=== PATIENT | female | born 1975 ===

== ENCOUNTER 2017-10-08 05:59 | Observation (INO) | payer OTHER ==
[2017-10-05 16:42] VITALS: BMI 34.7
[2017-10-08] MEDS ORDERED: Lactated Ringer's 1,000 ML IV ONE ×2 (07:07→08:00)
[2017-10-08] MEDS ORDERED: Bupivacaine 0.5% Inj(30mL) ONE (07:12)
[2017-10-08] MEDS ORDERED: Propofol 10 mg/ml Inj (20 ML) ONE (07:26)
[2017-10-08] MEDS ORDERED: ePHEDrine 50 mg/ml Inj ONE (07:27)
[2017-10-08] MEDS ORDERED: Succinylcholine 200 mg/10 ml Inj IV ONE (07:28)
[2017-10-08] MEDS ORDERED: Midazolam 2 MG/2 ML VIAL ONE (07:28)
[2017-10-08] MEDS ORDERED: Rocuronium 10 mg/ml (5 ml) ONE (07:28)
[2017-10-08] MEDS ORDERED: Lidocaine 4% (Laryng-O-Jet) Kit MM ONE (07:29)
--- NOTE | 2017-10-08 08:06 | CP.SDSHP ---
Same Day Surgery H & P - History Proposed Procedure: Hysterectomy - Allergies Allergies: Allergies No Known Allergies Allergy (Verified 10/04/17 10:53) - Physical Exam Vital Signs: Vital Signs 10/08/17 10/08/17 06:32 06:36 Temperature 98.6 F Pulse Rate 84 84 Respiratory 20 Rate Blood Pressure 109/76 O2 Sat by Pulse 100 Oximetry - Impression Impression: Menorrhagia refractory to medical management we discussed the risks benefits and alternatives to surgery and informed consent was obtained. Patient agreed to plan of care - Date & Time Date: 10/08/17 Time: 08:05 Short Stay Discharge - Short Stay Discharge Admitting Diagnosis/Reason for Visit: R10.2 Disposition: HOME/ ROUTINE Referrals: Katrina Araujo MD [Primary Care Provider] -
[2017-10-08] MEDS ORDERED: Dexamethasone 4 mg/1 ml ONE (08:17)
[2017-10-08] MEDS ORDERED: Neostigmine Methylsulfate 3mg/3ml Syringe IV ONE (09:55)
[2017-10-08] MEDS ORDERED: Lactated Ringer's 1,000 ML IV SCH (10:30)
[2017-10-08] MEDS: HYDROmorphone 0.5 mg/0.5 ml ISec IVP PRN ×2 (10:40→11:40)
[2017-10-08] MEDS ORDERED: Oxycodone/Acetaminophen 5/325 mg Tab PO PRN ×2 (10:47→18:40)
[2017-10-08 11:40] LABS: HEMOGLOBIN 12.8 g/dL (12.0-16.0); MEAN CELL VOLUME 89.2 fl (81.0-99.0); MEAN CORPUSCULAR HEMOGLOBIN 28.9 pg (27.0-31.0); MEAN CORPUSCULAR HGB CONC 32.4 g/dL (33.0-37.0); RBC 4.42 Mil/uL (3.80-5.20); RED CELL DISTRIBUTION WIDTH 13.1 % (11.5-14.5); WHITE BLOOD COUNT 19.2 K/uL (4.8-10.8)
--- NOTE | 2017-10-08 11:42 | OP ---
PROCEDURE DATE: PREOPERATIVE DIAGNOSES: Menorrhagia, pelvic pain, adenomyosis. POSTOPERATIVE DIAGNOSES: Menorrhagia, pelvic pain, adenomyosis. THE OPERATION PERFORMED: Robotic-assisted hysterectomy, cystoscopy. SURGEON: Rod Hamm MD. ERP DEVELOPER: Nii Ortiz DO. He was instrumental in the care of the patient, helped to create exposure, helped to obtain hemostasis and was helpful in extracting the specimen. The procedure would not have been possible without his assistance. TYPE OF ANESTHESIA: General. ANESTHESIA ADMINISTERED BY: Catherine Barahona MD. OPERATIVE FINDINGS: An adenomyotic globular-appearing uterus. Normal ovaries and tubes were noted. IV FLUID INTAKE: The patient received approximately 1500 mL of D5 LR intraoperatively. ESTIMATED BLOOD LOSS: 100 mL. URINE OUTPUT: Alexander catheter put out approximately 600 mL of clear urine. DESCRIPTION OF PROCEDURE: After informed consent was obtained, the patient was then taken to the operating room where she was given general anesthesia. The patient was then prepped and draped in the normal sterile fashion. Attention was then turned to the vagina where a speculum was inserted. The cervix was then grasped with a single tooth tenaculum and gently dilated. A VCare uterine manipulator was then inserted into the uterine cavity as a means to manipulate the uterus. Attention was then returned to the urethra where a Alexander catheter was inserted to monitor the patient's urinary output. Attention was then turned to the abdomen where 8 mm incision was made approximately 8 cm superior to the umbilicus. Marcaine was infused and the Veress needle was inserted while tenting the abdominal cavity. Placement was confirmed with a fluid-filled syringe. The abdomen was then insufflated to 15 mmHg. The Veress needle was removed and an 8 mm trocar was then inserted into the abdominal cavity. Placement was confirmed with a laparoscope. The abdomen was then surveyed with the findings noted above. Attention was then turned to approximately 5 cm superior to the right anterior iliac crest. Marcaine was infused. An 8 mm incision was made and an 8 mm robotic port was introduced into the abdominal cavity. Attention was then turned 10 cm right lateral to the umbilicus. Marcaine was infused. An 8 mm incision was made and an additional robotic port was introduced into the abdominal cavity. Attention was then turned to 5 cm superior to the left anterior iliac crest. Marcaine was infused. An 8 mm incision was made and an additional robotic port was introduced into the abdominal cavity. 10 cm left to the umbilicus, Marcaine was infused. A 5 mm incision was made and a robot assist port was introduced into the abdominal cavity. The patient was then placed in steep Trendelenburg. The table was lowered. The robot was brought along the patient's side and docked without complication. The instruments used for the surgery were PK dissector, Kraig SutureCut, ProGrasp and scissors. The instruments were inserted into the abdomen. I then broke scrub and proceeded to the surgical console. Attention was then turned to the right utero-ovarian ligament. It was serially coagulated and transected with a PK dissector. Attention was then turned to the round ligament, which in a similar fashion was serially coagulated and transected with the scissor. The VCare was noted anteriorly and posteriorly. The anterior peritoneum was then undermined with the PK dissector and it was scored with a scissor down to the level of the VCare cup anteriorly. A similar procedure was performed posteriorly with the broad ligament was scored with a scissors down to the level of the VCare cup posteriorly. Attention was then turned to the uterosacral ligament on the left side. It was serially coagulated and transected. The uterine arteries were then skeletonized down to the level of the VCare cup and then serially coagulated with the PK dissector. The uterine arteries were then transected. The VCare cup was noted anteriorly, laterally and posteriorly. Attention was then turned to the right side. In similar fashion, the utero-ovarian ligament was serially coagulated and transected with the scissors. Attention was then turned to the round ligament, which in a similar fashion was coagulated and transected with the scissor. The anterior peritoneum was then undermined with the PK dissector down to the level of the VCare cup anteriorly. A similar procedure was performed posteriorly. The uterine arteries were skeletonized and then serially coagulated with the PK dissector. The cup was then identified anteriorly, posteriorly and laterally. The colpotomy was made using the scissors. The cervix and the uterus were then amputated from the vagina. The vagina was then delivered vaginally. We noted she had a previous tubal. The tubal remnants were then excised using the PK dissector and the scissor and also extracted vaginally. The cuff was then closed with 2-0 barbed suture in a running fashion. The abdomen was then copiously irrigated. The irrigant was removed with a suction device. Hemostasis was noted. All instruments were then removed from the abdomen and the robot was undocked successfully. Attention was then turned to the urethra. Cystoscope was inserted into the bladder. We were unable to visualize clearly the ureter on the left side secondary to normal variation of anatomy. Upon inserting the cystoscope, we saw efflux of urine bilaterally and the dome of the bladder was intact and no blood noted. The cystoscopy was then terminated. The Alexander catheter was reinserted. Attention was then turned to the abdomen where the 8 mm incisions were repaired with 2-0 Biosyn and Dermabond. All sponge, lap, needle and instrument counts were correct x2. The patient was taken to the recovery room in awake and stable condition. Rod Hamm MD
[2017-10-08] MEDS: Sodium Chloride 0.9% 1,000 ML IV SCH (14:31)
[2017-10-08] MEDS: cefOXitin IV 1 gm in Dextrose 1 GM/50 ML BAG IVPB SCH (16:02)
[2017-10-08] MEDS: Simethicone 80 mg Chewtab PO PRN (20:45)
[2017-10-09] MEDS: cefOXitin IV 1 gm in Dextrose 1 GM/50 ML BAG IVPB SCH ×2 (01:03→08:40)
[2017-10-09] MEDS: Sodium Chloride 0.9% 1,000 ML IV SCH (01:07)
[2017-10-09] MEDS: Simethicone 80 mg Chewtab PO PRN (06:28)
--- NOTE | 2017-10-09 08:49 | CP.PCM.PN ---
Subjective - Date & Time of Evaluation Date of Evaluation: 10/09/17 Time of Evaluation: 08:18 - Subjective Subjective: Patient is 42 yo s/p RAVH and B/L salpingectomy, POD #1 denies fever, no SOB, no CP, no N/V, tolerating PO diet, ambulating minimal, +jorgensen draining clear urine, +flatus, no vaginal bleeding Objective - Vital Signs/Intake and Output Vital Signs (last 24 hours): Temp Pulse Resp BP Pulse Ox 99.2 F 69 17 101/57 L 98 10/09/17 05:55 10/09/17 05:55 10/09/17 05:55 10/09/17 05:55 10/09/17 05:55 Intake and Output: 10/09/17 10/09/17 06:59 18:59 Intake Total 1440 Output Total 1450 Balance -10 - Medications Medications: Current Medications Lactated Ringer's (Lactated Ringer's) 1,000 mls @ 125 mls/hr IV .Q8H CHRISTINA Cefoxitin Sodium (Mefoxin Iv 1 Gm Duplex) 1 gm in 50 mls @ 50 mls/hr IVPB Q8 CHRISTINA PRN Reason: Protocol Stop: 10/09/17 09:59 Last Admin: 10/09/17 01:03 Dose: 50 mls/hr Sodium Chloride (Sodium Chloride 0.9%) 1,000 mls @ 100 mls/hr IV .Q10H CHRISTINA Last Admin: 10/09/17 01:07 Dose: 100 mls/hr Ibuprofen (Motrin Tab) 600 mg PO Q6 PRN PRN Reason: Pain, Mild (1-3) Last Admin: 10/08/17 18:47 Dose: 600 mg Oxycodone/Acetaminophen (Percocet 5/325 Mg Tab) 1 tab PO Q4 PRN PRN Reason: Pain, Mild (1-3) Stop: 10/11/17 10:48 Last Admin: 10/08/17 18:08 Dose: 1 tab Oxycodone/Acetaminophen (Percocet 5/325 Mg Tab) 2 tab PO Q4 PRN PRN Reason: Pain, severe (8-10) Stop: 10/11/17 18:41 Simethicone (Mylicon Chew Tab) 80 mg PO TID PRN PRN Reason: Flatulence Last Admin: 10/09/17 06:28 Dose: 80 mg - Labs Labs: 10/08/17 11:34 - Constitutional Appears: Well, Non-toxic - Head Exam Head Exam: ATRAUMATIC - Respiratory Exam Respiratory Exam: NORMAL BREATHING PATTERN - Cardiovascular Exam Cardiovascular Exam: REGULAR RHYTHM - GI/Abdominal Exam GI & Abdominal Exam: Normal Bowel Sounds, Rebound Additional comments: bandage over incisions clean/dry, no rebound, +BS - Extremities Exam Extremities Exam: Normal Inspection - Neurological Exam Neurological Exam: Oriented x3 - Skin Skin Exam: Normal Color Assessment and Plan - Assessment and Plan (Free Text) Assessment: A/P POD #1 1. Patient recovering well, POD #1. Patient tolerating PO diet, remove jorgensen, Percocet/Motrin for pain 2. Patient discharged home, discharge instructions reviewed
[2017-10-09 09:25] VITALS: PULSE 85; RESP 20; TEMP 98.9; O2SAT 95
[2017-10-09 15:47] VITALS: BP 110/60
== END 2017-10-09 13:25 | disposition home or self-care (01) ==
LOC: H.OPSURG 05:59 → H.PEDS 10:47
PROVIDERS: ADMIT Obstetrics & Gynecology Gynecology; ATTEND Obstetrics & Gynecology Gynecology
DX: N92.0 Excessive and frequent menstruation with regular cycle (principal); N80.0 Endometriosis of uterus
CPT/HCPCS: 36415; 58552; 85027; 88307; G0378; J0330; J0690; J0694; J1100; J1170; J2001; J2250; J2405; J2704; J2710; J3010; J7040; J7120